=== PATIENT | female | born 1940 | race Caucasian/White ===

== ENCOUNTER 2017-02-17 23:10 | Emergency (ER) | payer MEDICARE, OTHER ==
[~2017-02-17] VITALS: Ht 160 cm; Wt 85.3 kg
[2017-02-18] MEDS ORDERED: ASPIRIN 325 MG TAB PO ONE (01:00)
[2017-02-18 01:07] LABS: BASO # 0.1 K/mm3 (0.0-0.2); BASO % 1.3 % (0.0-1.0); EOS # 0.3 K/mm3 (0.0-0.50); EOS % 4.1 % (0.0-3.0); LARGE UNSTAINED CELL # 0.1 K/mm3 (0.0-0.4); LARGE UNSTAINED CELL % 1.6 % (0.0-4.0); LYMPH % 27.4 % (24.0-44.0); MEAN CORPUSCULAR HGB CONC 32.8 g/dl (32.0-36.5); MEAN CORPUSCULAR VOLUME 97.4 fl (80.0-96.0); MONO # 0.5 K/mm3 (0.0-0.8); MONO % 6.8 % (0.0-5.0); NEUTROPHILS % 58.8 % (36.0-66.0); PLATELET COUNT, AUTOMATED 116 k/mm3 (150-450); RED CELL DISTRIBUTION WIDTH 13.3 % (11.5-14.5); WHITE BLOOD COUNT 6.7 K/mm3 (4.0-10.0)
[2017-02-18 01:37] LABS: ANION GAP 6 MEQ/L (8-16); BLOOD UREA NITROGEN 16 MG/DL (7-18); CALCIUM LEVEL 8.4 MG/DL (8.8-10.2); CARBON DIOXIDE LEVEL 30 MEQ/L (21-32); CHLORIDE LEVEL 109 MEQ/L (98-107); GLOMERULAR FILTRATION RATE > 60.0 (>39); GLUCOSE, FASTING 111 MG/DL (83-110); POTASSIUM SERUM 4.2 MEQ/L (3.5-5.1); SODIUM LEVEL 145 MEQ/L (136-145)
[2017-02-18] MEDS ORDERED: TIOT18INH INH (01:59)
[2017-02-18] MEDS ORDERED: FLON1SPR (01:59)
[2017-02-18] MEDS ORDERED: SERT50TA PO (01:59)
[2017-02-18] MEDS ORDERED: ASPI1TAB PO (01:59)
[2017-02-18 02:15] LABS: INR 0.91
[2017-02-18 05:16] VITALS: BP 148/67
--- NOTE | 2017-02-18 08:11 | REP ---
Clinical: Chest pain . Comparison: 12/10/2015 . Findings: The mediastinum and cardiac silhouette are stable and within normal limits for portable technique. The lung alfred demonstrate chronic stable interstitial changes without acute consolidation, effusion, or pneumothorax. Skeletal structures are intact. Impression: No acute cardiopulmonary process appreciated. Signed by Anthony Lopes MD 02/18/2017 08:02 A
--- NOTE | 2017-02-18 21:10 | ECGEPIP ---
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
--- NOTE | 2017-02-18 21:30 | ECGEPIP ---
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
== END 2017-02-18 05:26 | disposition home or self-care (01) ==
LOC: EDBD 23:10 → M ED 23:10
DX: R07.89 Other chest pain (principal); J44.9 Chronic obstructive pulmonary disease, unspecified; F41.9 Anxiety disorder, unspecified; Z88.5 Allergy status to narcotic agent; Z79.51 Long term (current) use of inhaled steroids; Z79.82 Long term (current) use of aspirin

== ENCOUNTER 2017-06-17 17:20 | Emergency (ER) | payer MEDICARE, OTHER ==
[2017-06-17] MEDS: ONDANSETRON 4MG/2ML VIAL (J2405) IV ×2 (18:28→20:06)
[2017-06-17] MEDS: MORPHINE 4 MG/ML 1ML SYRINGE IV (18:29)
== END 2017-06-17 20:43 | disposition home or self-care (01) ==
LOC: M ED 17:20
DX: S52.532A Colles' fracture of left radius, initial encounter for closed fracture (principal); W01.198A Fall on same level from slipping, tripping and stumbling with subsequent striking against other object, initial encounter; Y92.099 Unspecified place in other non-institutional residence as the place of occurrence of the external cause; Y93.01 Activity, walking, marching and hiking; Z87.891 Personal history of nicotine dependence
CPT/HCPCS: J2405

== ENCOUNTER → 2017-08-12 | Outpatient (REF) | payer MEDICARE, OTHER ==
[2017-08-12 21:09] LABS: APPEARANCE, URINE CLEAR (CLEAR); BACTERIA, URINE AUTO NEGATIVE (NEGATIVE); BILIRUBIN, URINE AUTO NEGATIVE (NEGATIVE); BLOOD, URINE BLOOD NEGATIVE (NEGATIVE); COLOR, URINE YELLOW (YELLOW); GLUCOSE, URINE (UA) AUTO NEGATIVE (NEGATIVE); KETONE, URINE AUTO NEGATIVE (NEGATIVE); LEUKOCYTE ESTERASE, URINE AUTO NEGATIVE (NEGATIVE); MUCUS, URINE SMALL (NEGATIVE); NITRITE, URINE AUTO NEGATIVE (NEGATIVE); PROTEIN, URINE AUTO NEGATIVE (NEGATIVE); RBC, URINE AUTO 0 /HPF (0-3); SPECIFIC GRAVITY URINE AUTO 1.012 (1.002-1.035); SQUAMOUS EPITHELIAL CELL UR AU 0 /HPF (0-6); UROBILINOGEN, URINE AUTO 0.2 mg/dL (0.0-2.0); WBC, URINE AUTO 0 /HPF (0-3)
== END ==
LOC: M SMT 17:07
DX: R32 Unspecified urinary incontinence (principal)
CPT/HCPCS: 81001

== ENCOUNTER 2017-09-12 08:33 | Emergency (ER) | payer MEDICARE, OTHER ==
[2017-09-12] MEDS: ASPIRIN 81 MG CHEW TABLET PO (09:38)
[2017-09-12] MEDS: PANTOPRAZOLE 40MG INJ (PROTONIX) (C9113) IV (09:38)
[2017-09-12 09:54] LABS: BASO % 0.5 % (0.0-1.0); EOS # 0.1 10^3/uL (0.0-0.50); EOS % 1.2 % (0.0-3.0); HEMATOCRIT 42.4 % (36.0-47.0); IMMATURE GRANULOCYTE % 0.6 % (0-3.0); LYMPH # 0.7 10^3/uL (1.5-4.5); LYMPH % 10.8 % (24.0-44.0); MEAN CORPUSCULAR HEMOGLOBIN 30.6 pg (27.0-33.0); MEAN CORPUSCULAR VOLUME 92.6 fl (80.0-96.0); MONO # 0.5 10^3/uL (0.0-0.8); MONO % 7.8 % (0.0-5.0); NEUTROPHILS # 5.3 10^3/uL (1.8-7.7); NEUTROPHILS % 79.1 % (36.0-66.0); PLATELET COUNT, AUTOMATED 118 10^3/uL (150-450); RED BLOOD COUNT 4.58 10^6/uL (4.00-5.40); WHITE BLOOD COUNT 6.7 10^3/uL (4.0-10.0)
[2017-09-12 10:08] LABS: ALBUMIN 3.3 GM/DL (3.2-5.2); ALBUMIN/GLOBULIN RATIO 0.94 (1.00-1.93); ALKALINE PHOSPHATASE 124 U/L (45-117); ALT/SGPT 17 U/L (12-78); ANION GAP 5 MEQ/L (8-16); AST/SGOT 13 U/L (7-37); BILIRUBIN,DIRECT 0.1 MG/DL (0.0-0.2); BILIRUBIN,TOTAL 0.6 MG/DL (0.2-1.0); BLOOD UREA NITROGEN 15 MG/DL (7-18); CALCIUM LEVEL 8.9 MG/DL (8.8-10.2); CARBON DIOXIDE LEVEL 29 MEQ/L (21-32); CHLORIDE LEVEL 110 MEQ/L (98-107); CPK CREATINE PHOSPHOKINASE 38 U/L (26-192); CREATININE FOR GFR 0.89 MG/DL (0.55-1.30); GLOMERULAR FILTRATION RATE > 60.0 (>39); GLUCOSE, FASTING 103 MG/DL (70-100); LIPASE 155 U/L (73-393); SODIUM LEVEL 144 MEQ/L (136-145); TOTAL PROTEIN 6.8 GM/DL (6.4-8.2); TROPONIN I < 0.02 NG/ML (< 0.10)
[2017-09-12 10:09] LABS: CK-MB VALUE MASS < 1.0 NG/ML (<3.6); MB/CK RELATIVE INDEX 2.63 (< OR =4)
[2017-09-12 13:21] LABS: CK-MB VALUE MASS < 1.0 NG/ML (<3.6); CPK CREATINE PHOSPHOKINASE 36 U/L (26-192); MB/CK RELATIVE INDEX 2.77 (< OR =4); TROPONIN I < 0.02 NG/ML (< 0.10)
== END 2017-09-12 13:55 | disposition home or self-care (01) ==
LOC: M ED 08:33
DX: R07.89 Other chest pain (principal); K44.9 Diaphragmatic hernia without obstruction or gangrene; I44.0 Atrioventricular block, first degree; J44.9 Chronic obstructive pulmonary disease, unspecified; E78.5 Hyperlipidemia, unspecified; G47.33 Obstructive sleep apnea (adult) (pediatric); Z79.899 Other long term (current) drug therapy; Z79.82 Long term (current) use of aspirin; Z79.51 Long term (current) use of inhaled steroids; Z88.5 Allergy status to narcotic agent
CPT/HCPCS: C9113

== ENCOUNTER → 2018-08-06 | Outpatient (REF) | payer MEDICARE, OTHER ==
[~2018-08-06] MED LIST: ASPI1TAB PO; ATOR1TAB19; FLON1SPR; PROAAER10; PROT1TAB2 PO; SERT50TA PO; TIOT18INH INH
== END ==
LOC: M SFHCLERA 14:56
PROVIDERS: ATTEND Physician Assistant
DX: J02.9 Acute pharyngitis, unspecified (principal)

== ENCOUNTER → 2019-08-03 | Outpatient (CLI) | payer MEDICARE, OTHER ==
[~2019-08-03] MED LIST changes: +ALBU83IN INH; -ASPI1TAB PO; +ASPI81TA26 PO; +MYRB50TA PO; +PRED20TA PO; +RANI150T14 PO; +SERT-141 PO; -SERT50TA PO
--- NOTE | 2019-08-03 09:38 | REP ---
Clinical: Urinary retention. Technique: Real time deshpande scale and color evaluation using curved array transducer. Findings: Bladder is not fully distended on prevoid images and wall thickening cannot be assessed. No mass lesion is identified. Bilateral ureteral jets are noted. Prevoid volume: 87 ml. Postvoid volume: 56 ml. Postvoid residual: 64% Impression: 1. Bladder does not fully distend and abnormally increased postvoid residual volume is noted. 2. No mass lesion identified. Electronically Signed by Anthony Lopes MD 08/03/2019 09:29 A
== END ==
LOC: M RAD 08:57
PROVIDERS: ATTEND Internal Medicine Nephrology
DX: R33.9 Retention of urine, unspecified (principal)

== ENCOUNTER 2020-05-11 20:08 | Inpatient (IN) | payer MEDICARE, OTHER ==
[~2020-05-11] VITALS: Ht 157.5 cm; Wt 84.5 kg
--- NOTE | 2020-05-11 20:50 | REPVR ---
PROCEDURE INFORMATION: Exam: XR Left Humerus Exam date and time: 05/11/2020 8:41 PM Age: 79 years old Clinical indication: Pain and injury or trauma; Fall; Sprain or strain; Humerus; Left; Upper arm; Additional info: Fall/pain TECHNIQUE: Imaging protocol: XR Left humerus Views: 2 or more views. COMPARISON: No relevant prior studies available. FINDINGS: Bones/joints: There is a fracture of the proximal humerus consisting of a transverse fracture through the humeral neck with angulation. There is a probable longitudinal fracture through the greater tubercle which is slightly displaced. Osteopenia. Soft tissues: Normal. IMPRESSION: 1. Fracture of the proximal left humerus which consists of a transverse fracture of the humeral neck with angulation and a longitudinal fracture through the greater tubercle. 2. Osteopenia. Electronically signed by: Adama Jefferson On 05/11/2020 20:50:15 PM
--- NOTE | 2020-05-11 20:52 | REPVR ---
PROCEDURE INFORMATION: Exam: XR Left Shoulder Exam date and time: 05/11/2020 8:41 PM Age: 79 years old Clinical indication: Pain and injury or trauma; Fall; Sprain or strain; Shoulder; Left; Additional info: Fall/pain TECHNIQUE: Imaging protocol: XR Left shoulder. Views: 2 or more views. COMPARISON: No relevant prior studies available. FINDINGS: Bones/joints: Osteopenia. Fracture of the proximal humerus with a transverse fracture of the humeral neck and a slightly displaced longitudinal fracture of the greater tubercle. There is angulation through the site of fracture with mild displacement. There is subluxation of the articular surface of the humeral head. Soft tissues: Normal. IMPRESSION: 1. Osteopenia. 2. Displaced and angulated fracture of the humeral neck with associated subluxation of the articular portion of the humeral head relative to the glenoid. There is also a fracture through the base of the greater tubercle. Electronically signed by: Adama Jefferson On 05/11/2020 20:52:35 PM
--- NOTE | 2020-05-11 21:35 | REPVR ---
PROCEDURE INFORMATION: Exam: CT Cervical Spine Without Contrast Exam date and time: 05/11/2020 9:23 PM Age: 79 years old Clinical indication: Injury or trauma; Fall; Blunt trauma TECHNIQUE: Imaging protocol: Computed tomography images of the cervical spine without contrast. Radiation optimization: All CT scans at this facility use at least one of these dose optimization techniques: automated exposure control; mA and/or kV adjustment per patient size (includes targeted exams where dose is matched to clinical indication); or iterative reconstruction. COMPARISON: CT Neck with contrast 04/18/2014 1:27 PM FINDINGS: Vertebrae: Slight anterior wedge configuration of C4 which appears to be chronic and is similar to a prior study. C2-C3: Fusion of the left apophyseal joint with some degenerative change on the right with no significant spinal or foraminal stenosis. C3-C4: Slight interspace narrowing posteriorly with moderate degenerative change of the apophyseal joints, left greater than right with no significant spinal or foraminal stenosis. C4-C5: Slight anterolisthesis with moderate degenerative changes of the right apophyseal joint and minimal change on the left with no significant spinal or foraminal stenosis. C5-C6: Slight anterolisthesis with moderate degenerative/arthritic change of the right apophyseal joint and minimal changes on the left with no significant spinal or foraminal stenosis. C6-C7: Minimal degenerative change with no spinal or foraminal stenosis. C7-T1: Minimal degenerative change of apophyseal joints, right greater than left with slight anterolisthesis and no significant spinal or foraminal stenosis. Soft tissues: Unremarkable. Lungs: Biapical interstitial coarsening and bullous change. IMPRESSION: 1. Mild multilevel degenerative changes with no significant spinal or foraminal stenosis. There has been little change from 04/18/2014. 2. Otherwise negative CT cervical spine. No acute fracture or subluxation. Electronically signed by: Adama Jefferson On 05/11/2020 21:35:30 PM
--- NOTE | 2020-05-11 21:37 | REPVR ---
PROCEDURE INFORMATION: Exam: CT Head Without Contrast Exam date and time: 05/11/2020 9:23 PM Age: 79 years old Clinical indication: Injury or trauma; Fall; Blunt trauma (contusions or hematomas) TECHNIQUE: Imaging protocol: Computed tomography of the head without contrast. Radiation optimization: All CT scans at this facility use at least one of these dose optimization techniques: automated exposure control; mA and/or kV adjustment per patient size (includes targeted exams where dose is matched to clinical indication); or iterative reconstruction. COMPARISON: CT Head without contrast 07/22/2014 8:09 AM FINDINGS: Brain: Upper normal sulci for age. The deshpande and white matter is within normal limits. Cerebral ventricles: No ventriculomegaly. Bones/joints: Unremarkable. No acute fracture. Paranasal sinuses: Visualized sinuses are unremarkable. No fluid levels. Mastoid air cells: Visualized mastoid air cells are well aerated. Soft tissues: Unremarkable. IMPRESSION: Negative noncontrast head CT without significant change from 07/22/2014. Electronically signed by: Adama Jefferson On 05/11/2020 21:37:50 PM
[2020-05-11] MEDS ORDERED: NORCO, ANEXSIA 5/325MG TABLET (HYDROcodone/ACETAMINOPHEN) PO ONE (21:45)
[2020-05-11] MEDS ORDERED: NORC1TAB7 PO (22:04)
[2020-05-11] MEDS ORDERED: ONDA4TAB6 PO (22:04)
--- NOTE | 2020-05-11 22:18 | REPVR ---
PROCEDURE INFORMATION: Exam: CT Left Upper Extremity Without Contrast, Shoulder Exam date and time: 05/11/2020 9:23 PM Age: 79 years old Clinical indication: Injury or trauma; Fall; Blunt trauma (contusions or hematomas); Shoulder; Left TECHNIQUE: Imaging protocol: CT of the Left upper extremity without contrast was performed. Exam focused on the shoulder. Radiation optimization: All CT scans at this facility use at least one of these dose optimization techniques: automated exposure control; mA and/or kV adjustment per patient size (includes targeted exams where dose is matched to clinical indication); or iterative reconstruction. COMPARISON: CR Shoulder, complete LEFT 05/11/2020 8:27 PM FINDINGS: Bones/joints: The comminuted fracture of the proximal left humerus with a transverse fracture through the humeral neck. There is impaction of the metaphysis into the humeral head fragment which is displaced and angulated. The metaphysis is anterior to the humeral head. Multiple fracture lines are noted to extend through the humeral head fragment which include a fracture extending longitudinally along the greater trochanter with additional fracture lines which extend into the articular surface with slight displacement of the intervening fragment at the posterior aspect. There is a large left hemarthrosis of the left shoulder joint with pseudosubluxation of the humeral head relative to the glenoid. Soft tissues: Normal. IMPRESSION: 1. Comminuted fracture of the left proximal humerus which consists of a transverse fracture through the humeral neck which is displaced anteriorly relative to the head component. The head fragment demonstrates several fracture lines which include a longitudinal transverse fracture through the base of the greater trochanter and additional fracture extending posteriorly through the articular surface of the humeral head. 2. Large lipohemarthrosis of the left shoulder with anterior pseudosubluxation of the humeral head. Electronically signed by: Adama Jefferson On 05/11/2020 22:18:16 PM
[2020-05-11 22:58] LABS: BASO % 0.4 % (0.0-1.0); EOS % 0.5 % (0.0-3.0); HEMATOCRIT 40.6 % (36.0-47.0); HEMOGLOBIN 12.9 g/dl (12.0-15.5); LYMPH # 0.9 10^3/uL (1.5-5.0); LYMPH % 10.3 % (24.0-44.0); MEAN CORPUSCULAR HEMOGLOBIN 30.5 pg (27.0-33.0); MEAN CORPUSCULAR HGB CONC 31.8 g/dl (32.0-36.5); MONO # 0.4 10^3/uL (0.0-0.8); NEUTROPHILS # 6.9 10^3/uL (1.5-8.5); NEUTROPHILS % 83.4 % (36.0-66.0); RED BLOOD COUNT 4.23 10^6/uL (4.00-5.40); WHITE BLOOD COUNT 8.3 10^3/uL (4.0-10.0)
--- NOTE | 2020-05-11 23:01 | REPVR ---
PROCEDURE INFORMATION: Exam: XR Chest, 1 View Exam date and time: 05/11/2020 10:42 PM Age: 79 years old Clinical indication: Cough and dyspnea; Additional info: Dyspnea/cough TECHNIQUE: Imaging protocol: XR of the chest Views: 1 view. COMPARISON: CR PORTABLE CHEST X-RAY 10/29/2018 9:43 AM FINDINGS: Lungs: Mild pulmonary hyperinflation with some relative lucency of lung which is similar. There are no interval infiltrates. Pleural space: Unremarkable. No pleural effusion. No pneumothorax. Heart/Mediastinum: The heart and mediastinum is probably unchanged with borderline cardiomegaly. Bones/joints: Fractured left humeral head, new since the prior study. Other findings: Rotation to the right. IMPRESSION: 1. Fracture of the left humeral head which is new since 10/29/2018. 2. Otherwise essentially stable senescent chest with suggestion of some degree of COPD. Electronically signed by: Adama Jefferson On 05/11/2020 23:01:47 PM
--- NOTE | 2020-05-11 23:53 | HPEPDOC ---
[facility] Medical History & Physical Date of Admission May 11, 2020 Date of Service: May 11, 2020 Primary Care Physician: RADHA TORRES MD Attending Physician: FIDELINA PEÑA MD History and Physical TIME OF SERVICE: 1154pm CHIEF COMPLAINT: Left shoulder pain HISTORY OF PRESENT ILLNESS: This 79-year-old female as an unsteady gait and at her baseline should be using a cane or walker. She slipped on her floor and fell on her left shoulder while she was trying getting up off of her couch. She didn't have her cane or walker to assist her when she fell. She denied feeling dizzy, having shortness of breath, having chest pain, having vomiting or diarrhea prior to the fall. She re ports eating well yesterday. As a result of the fall, she developed left upper extremity 5 out of 10 in severity, arm pain that is worse with movement. She was found to have a closed left humerus fracture; Dr. Torres discussed the case with Dr. Bauer who recommended sling PT and outpatient follow-up. added with a sling the patient won't be able to use her walking aides and will need additional arrangements to ensure that she is safely discharged home. REVIEW OF SYSTEMS: 12 point review of systems negative except as listed in HPI PAST MEDICAL/ SURGICAL HISTORY: Asthma/COPD Dyslipidemia Impaired hearing, has hearing aids Parotid gland tumor Newly diagnosed osteoporosis Right wrist fracture in 2015 & left arm fracture in 2018 SOCIAL HISTORY: Former smoker. She smoked 1 pack per day in between the ages of 13 years into her 60s She is FAMILY HISTORY: n/a ALLERGIES: Please see below. HOME MEDICATIONS: Please see below. PHYSICAL EXAMINATION: Vital Signs Date Time Temp Pulse Resp B/P (MAP) Pulse Ox O2 Delivery O2 Flow Rate FiO2 05/11/20 20:17 96.6 63 20 128/58 (81) 98 Room Air GEN: well-nourished / well developed/grimacing in pain INTEGUMENT: not flushed/ not jaundice CVS: RRR/NMRG/ radial pulses intact LUNGS: able to speak full sentences without stopping to take a breath / no coughing / lungs are clear to auscultation bilaterally on room air MSK/EXTREMITIES: NCAT / range of motion intact in all extremities except LUE where arm is fixed with sling NEURO: CN 2-12 are grossly intact / speech is not dysarthric PSYCH: alert and oriented to person place and time/ able to understand and follow all commands LABORATORY DATA: 05/11/20 22:39 05/11/20 22:39: Immature Granulocyte % (Auto) 0.4, Neutrophils (%) (Auto) 83.4H, Lymphocytes (%) (Auto) 10.3L, Monocytes (%) (Auto) 5.0, Eosinophils (%) (Auto) 0.5, Basophils (%) (Auto) 0.4, Neutrophils # (Auto) 6.9, Lymphocytes # (Auto) 0.9L, Monocytes # (Auto) 0.4, Eosinophils # (Auto) 0.0, Basophils # (Auto) 0.0, Nucleated Red Blood Cells % (auto) 0.0, Coronavirus (COVID-19)(PCR) NEGATIVE IMAGING: Shoulder x-ray " 1. Osteopenia. 2. Displaced and angulated fracture of the humeral neck with associated subluxation of the articular portion of the humeral head relative to the glenoid. There is also a fracture through the base of the greater tubercle." Humerus x-ray"1. Fracture of the proximal left humerus which consists of a transverse fracture of the humeral neck with angulation and a longitudinal fracture through the greater tubercle. 2. Osteopenia." Shoulder CT " 1. Comminuted fracture of the left proximal humerus which consists of a transverse fracture through the humeral neck which is displaced anteriorly relative to the head component. The head fragment demonstrates several fracture lines which include a longitudinal transverse fracture through the base of the greater trochanter and additional fracture extending posteriorly through the articular surface of the humeral head. 2. Large lipohemarthrosis of the left shoulder with anterior pseudosubluxation of the humeral head." Head CT " Negative noncontrast head CT without significant change from 07/22/2014." Cervical spine CT "1. Mild multilevel degenerative changes with no significant spinal or foraminal stenosis. There has been little change from 04/18/[address] cervical spine. No acute fracture or subluxation." Chest x-ray "1. Fracture of the left humeral head which is new since 10/29/2018. 2. Otherwise essentially stable senescent chest with suggestion of some degree of COPD." ASSESSMENT: Ms. Bermudez is an 79-year-old with a history of asthma/COPD, dyslipidemia, osteoporosis, and impaired hearing, who developed a closed left humerus fracture after having a mechanical fall. She'll be admitted for pain management and discharge planning. PLAN: 1 Mechanical Fall resulting in L humerus fx Fall was most likely due to lower extremity weakness. Her EKG showed NSR w/o ST changes Plan: Admit to medical floor / PT/OT consults to determine if she is a candidate for ARU because it will be difficult for her to use her walking aides while her arm is in a sling / [place] for pain control / f/u with on an out patient basis 2. Newly Osteoporosis She has a hx of with history of right wrist fracture in 2015, left arm fracture in 2018 + osteopenia on imaging Plan: start calcium with vitamin D [id number] IU daily with PCP for workup to rule out secondary causes of osteoporosis. DEXA scan, and to start antiresorptive therapy 3. Slightly elevated TSH The patient is over 80 yrs of age: the upper limit of the normal range in this elderly population without thyroid dysfunction is 8.0 Plan: n/a 4. Asthma/COPD Plan: albuterol and Spiriva 5. Class 1 obesity BMI of 34.1 complicates care Plan: f/u A1C / f/u with PCP for sleep apnea screening and to discuss diet and exercise DVT PROPHYLAXIS: lovenox DISPOSITION: likely ARU after more than 2 midnight's stay Home Medications Scheduled Aspirin (Aspirin EC) 81 Mg Tablet.dr, 81 MG PO DAILY Furosemide (Furosemide) 40 Mg Tablet, 40 MG PO DAILY Tiotropium [place] (Spiriva Respimat) 4 Gm Mist.inhal, 2 PUFF INH DAILY Scheduled PRN Albuterol Sulfate (Proair Hfa) 8.5 Gm Hfa.aer.ad, 2 PUFF INH Q4H PRN for SHORTNESS OF BREATH Fluticasone Propionate (Flonase Allergy Relief) 9.9 Ml [place].susp, 2 SPRAYS NA DAILY PRN for NASAL CONGESTION Allergies Coded Allergies: oxycodone (Verified Adverse Reaction, Intermediate, n/v, 10/29/18) codeine (Verified Adverse Reaction, Unknown, n/v, 10/29/18) A-FIB/CHADSVASC A-FIB History Current/History of A-Fib/PAF?: No Current PO Anticoag Therapy: No FIDELINA PEÑA MD May 11, 2020 23:53
[2020-05-12] MEDS ORDERED: HYDROMORPHONE HCL 0.5 MG/ 0.5 ML SYRINGE (J1170 PER 1) IV PRN
[2020-05-12] MEDS ORDERED: SPIR12.9 INH (00:04)
[2020-05-12] MEDS ORDERED: ASPI-161 PO (00:04)
[2020-05-12] MEDS ORDERED: PROAAER10 INH (00:04)
[2020-05-12] MEDS ORDERED: FURO40TA2 PO (00:04)
[2020-05-12] MEDS ORDERED: FLON1SPR (00:04)
[2020-05-12 00:10] LABS: ALBUMIN 3.1 GM/DL (3.2-5.2); ALT/SGPT 15 U/L (12-78); BILIRUBIN,DIRECT < 0.1 MG/DL (0.0-0.2); BILIRUBIN,TOTAL 0.1 MG/DL (0.2-1.0); BLOOD UREA NITROGEN 24 MG/DL (7-18); CALCIUM LEVEL 8.5 MG/DL (8.8-10.2); CARBON DIOXIDE LEVEL 30 MEQ/L (21-32); CHLORIDE LEVEL 111 MEQ/L (98-107); CREATININE FOR GFR 1.08 MG/DL (0.55-1.30); GLOMERULAR FILTRATION RATE 51.8 (>32); GLUCOSE, FASTING 115 MG/DL (70-100); NT-PRO BNP 290 PG/ML (<450); POTASSIUM SERUM 4.3 MEQ/L (3.5-5.1); SODIUM LEVEL 145 MEQ/L (136-145); TROPONIN I < 0.02 NG/ML (< 0.10)
[2020-05-12] MEDS ORDERED: MAALOX 30 ML SUSP *UDC PO PRN (01:00)
[2020-05-12] MEDS ORDERED: MOM 30ML SUSPENSION UDC PO PRN (01:00)
[2020-05-12] MEDS ORDERED: ACETAMINOPHEN TAB 650MG DOSE (2X325MG) PO PRN (01:00)
[2020-05-12] MEDS: NORCO, ANEXSIA 5/325MG TABLET (HYDROcodone/ACETAMINOPHEN) PO PRN ×2 (01:49→08:04)
[2020-05-12 02:15] VITALS: BP 142/70
[2020-05-12 06:00] VITALS: BP 108/52
--- NOTE | 2020-05-12 06:42 | ECGEPIP ---
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
[2020-05-12 07:10] LABS: HEMATOCRIT 36.1 % (36.0-47.0); HEMOGLOBIN 11.5 g/dl (12.0-15.5); MEAN CORPUSCULAR HEMOGLOBIN 30.6 pg (27.0-33.0); MEAN CORPUSCULAR HGB CONC 31.9 g/dl (32.0-36.5); PLATELET COUNT, AUTOMATED 122 10^3/uL (150-450); RED BLOOD COUNT 3.76 10^6/uL (4.00-5.40); WHITE BLOOD COUNT 9.2 10^3/uL (4.0-10.0)
[2020-05-12 07:21] LABS: BLOOD UREA NITROGEN 22 MG/DL (7-18); CALCIUM LEVEL 8.6 MG/DL (8.8-10.2); CARBON DIOXIDE LEVEL 26 MEQ/L (21-32); CHLORIDE LEVEL 111 MEQ/L (98-107); CREATININE FOR GFR 0.95 MG/DL (0.55-1.30); GLOMERULAR FILTRATION RATE > 60.0 (>32); GLUCOSE, FASTING 108 MG/DL (70-100); POTASSIUM SERUM 4.1 MEQ/L (3.5-5.1); SODIUM LEVEL 142 MEQ/L (136-145)
[2020-05-12] MEDS ORDERED: ENOXAPARIN 40MG/0.4ML SYRINGE (J1650 PER 10MG) SC SCH (09:00)
[2020-05-12] MEDS ORDERED: HYDR-3715 PO (10:48)
[2020-05-12] MEDS ORDERED: ACET1TAB55 PO (10:48)
[2020-05-12] MEDS ORDERED: ALEN35TA54 PO (10:48)
[2020-05-12] MEDS ORDERED: CALCD50TA PO (10:51)
--- NOTE | 2020-05-12 13:51 | DS.PDOC ---
Discharge Summary General Date of Admission May 11, 2020 at 23:50 Date of Discharge 05/12/20 Discharge Summary PROCEDURES PERFORMED DURING STAY: [None]. ADMITTING DIAGNOSES: Mechanical Fall resulting in L humerus fx Newly Osteoporosis elevated TSH Asthma/COPD Class 1 obesity DISCHARGE DIAGNOSES: Mechanical Fall resulting in L humerus fx Newly Osteoporosis elevated TSH Asthma/COPD Class 1 obesity COMPLICATIONS/CHIEF COMPLAINT: Closed Left Hip Fracture,Fall. HISTORY OF PRESENT ILLNESS: This 79-year-old female as an unsteady gait and at her baseline should be using a cane or walker. She slipped on her floor and fell on her left shoulder while she was trying getting up off of her couch. She didn't have her cane or walker to assist her when she fell. She denied feeling dizzy, having shortness of breath, having chest pain, having vomiting or diarrhea prior to the fall. She reports eating well yesterday. As a result of the fall, she developed left upper extremity 5 out of 10 in severity, arm pain that is worse with movement. She was found to have a closed left humerus fracture; Dr. Torres discussed the case with Dr. Bauer who recommended sling PT and outpatient follow-up. added with a sling the patient won't be able to use her walking aides and will need additional arrangements to ensure that she is safely discharged home. HOSPITAL COURSE: Patient was cleared by PT OT in the morning. DISCHARGE MEDICATIONS: Please see below. ALLERGIES: Please see below. PHYSICAL EXAMINATION ON DISCHARGE: VITAL SIGNS: Please see below. GEN: well-nourished / well developed/grimacing in pain INTEGUMENT: not flushed/ not jaundice CVS: RRR/NMRG/ radial pulses intact LUNGS: able to speak full sentences without stopping to take a breath / no coughing / lungs are clear to auscultation bilaterally on room air MSK/EXTREMITIES: NCAT / range of motion intact in all extremities except LUE where arm is fixed with sling NEURO: CN 2-12 are grossly intact / speech is not dysarthric PSYCH: alert and oriented to person place and time/ able to understand and follow all commands LABORATORY DATA: Please see below. IMAGING: Shoulder x-ray " 1. Osteopenia. 2. Displaced and angulated fracture of the humeral neck with associated subluxation of the articular portion of the humeral head relative to the glenoid. There is also a fracture through the base of the greater tubercle." Humerus x-ray"1. Fracture of the proximal left humerus which consists of a transverse fracture of the humeral neck with angulation and a longitudinal fracture through the greater tubercle. 2. Osteopenia." Shoulder CT " 1. Comminuted fracture of the left proximal humerus which consists of a transverse fracture through the humeral neck which is displaced anteriorly relative to the head component. The head fragment demonstrates several fracture lines which include a longitudinal transverse fracture through the base of the greater trochanter and additional fracture extending posteriorly through the articular surface of the humeral head. 2. Large lipohemarthrosis of the left shoulder with anterior pseudosubluxation of the humeral head." Head CT " Negative noncontrast head CT without significant change from 07/22/2014." Cervical spine CT "1. Mild multilevel degenerative changes with no significant spinal or foraminal stenosis. There has been little change from 04/18/[address] cervical spine. No acute fracture or subluxation." Chest x-ray "1. Fracture of the left humeral head which is new since 10/29/2018. 2. Otherwise essentially stable senescent chest with suggestion of some degree of COPD." PROGNOSIS: Fair ACTIVITY: [As tolerated]. DIET: Regular DISPOSITION: 01 Home, Self-Care. ITEMS TO FOLLOWUP ON ON OUTPATIENT: Follow-up with PCP DISCHARGE CONDITION: [Stable]. TIME SPENT ON DISCHARGE: Greater than 20 minutes. Vital Signs/I&Os Vital Signs Date Time Temp Pulse Resp B/P (MAP) Pulse Ox O2 Delivery O2 Flow Rate FiO2 05/12/20 08:34 18 05/12/20 06:00 97.5 56 108/52 (70) 95 Room Air I&O- Last 24 Hours up to 6 AM 05/12/20 06:00 Intake Total 0 ml Output Total 0 ml Balance 0 ml Laboratory Data Labs 24H Laboratory Tests 2 05/11/20 22:39: Immature Granulocyte % (Auto) 0.4, Neutrophils (%) (Auto) 83.4H, Lymphocytes (%) (Auto) 10.3L, Monocytes (%) (Auto) 5.0, Eosinophils (%) (Auto) 0.5, Basophils (%) (Auto) 0.4, Neutrophils # (Auto) 6.9, Lymphocytes # (Auto) 0.9L, Monocytes # (Auto) 0.4, Eosinophils # (Auto) 0.0, Basophils # (Auto) 0.0, Nucleated Red Blood Cells % (auto) 0.0, Anion Gap 4L, Glomerular Filtration Rate 51.8, Calcium Level 8.5L, Total Bilirubin 0.1L, Direct Bilirubin < 0.1, Aspartate Amino Transf (AST/SGOT) 18, Alanine Aminotransferase (ALT/SGPT) 15, Alkaline Phosphatase 120H, Troponin I < 0.02, CJ-Sbv-C-Type Natriuretic Peptide 290, Total Protein 6.0L, Albumin 3.1L, Albumin/Globulin Ratio 1.1L, Thyroid Stimulating Hormone (TSH) 7.040H, Coronavirus (COVID-19)(PCR) NEGATIVE 05/12/20 06:22: Nucleated Red Blood Cells % (auto) 0.0, Anion Gap 5L, Glomerular Filtration Rate > 60.0, Calcium Level 8.6L CBC/BMP Laboratory Tests 05/11/20 22:39 05/12/20 06:22 Discharge Medications Scheduled Alendronate Sodium (Alendronate Sodium) 35 Mg Tablet, 1 TAB PO Q7D Aspirin (Aspirin EC) 81 Mg Tablet.dr, 81 MG PO DAILY, (Reported) Calcium/Vitamin D (Calcium 500-Vit D3 200 Tablet) 1 Each Tablet, 1,000 MG PO BID Furosemide (Furosemide) 40 Mg Tablet, 40 MG PO DAILY, (Reported) Tiotropium [place] (Spiriva Respimat) 4 Gm Mist.inhal, 2 PUFF INH DAILY, (Reported) Scheduled PRN Acetaminophen (Acetaminophen) 325 Mg Tablet, 650 MG PO Q4H PRN for PAIN OR FEVER Albuterol Sulfate (Proair Hfa) 8.5 Gm Hfa.aer.ad, 2 PUFF INH Q4H PRN for SHORTNESS OF BREATH, (Reported) Fluticasone Propionate (Flonase Allergy Relief) 9.9 Ml [place].susp, 2 SPRAYS NA DAILY PRN for NASAL CONGESTION, (Reported) Hydrocodone/Acetaminophen (Hydrocodone-Acetamin 5-325 mg) 1 Each Tablet, 1 TAB PO Q4HP PRN for MILD/MODERATE PAIN (PS 1-7) Allergies Coded Allergies: oxycodone (Verified Adverse Reaction, Intermediate, n/v, 10/29/18) codeine (Verified Adverse Reaction, Unknown, n/v, 10/29/18) MC GAMEZ DO May 12, 2020 13:51
[2020-05-12] MEDS ORDERED: CALCIUM/VITAMIN D 500 MG TAB PO SCH (21:00)
== END 2020-05-12 11:18 | disposition home or self-care (01) | DRG 563 ==
LOC: M ED 20:08 → M ED INP 23:50 → ENRESERV 05-12 00:45 → M MS5PR 05-12 01:40
PROVIDERS: ADMIT Internal Medicine; ATTEND Internal Medicine
DX: S42.252A Displaced fracture of greater tuberosity of left humerus, initial encounter for closed fracture (principal); R26.89 Other abnormalities of gait and mobility; W18.09XA Striking against other object with subsequent fall, initial encounter; Y92.009 Unspecified place in unspecified non-institutional (private) residence as the place of occurrence of the external cause; Y99.8 Other external cause status; Y93.89 Activity, other specified; J45.909 Unspecified asthma, uncomplicated; J44.9 Chronic obstructive pulmonary disease, unspecified; M81.0 Age-related osteoporosis without current pathological fracture; H91.93 Unspecified hearing loss, bilateral; Z87.891 Personal history of nicotine dependence; E66.9 Obesity, unspecified; Z68.34 Body mass index [BMI] 34.0-34.9, adult; Z79.82 Long term (current) use of aspirin; Z79.899 Other long term (current) drug therapy; Z88.5 Allergy status to narcotic agent; Z20.828 Contact with and (suspected) exposure to other viral communicable diseases

== ENCOUNTER → 2020-06-23 | Outpatient (CLI) | payer MEDICARE, OTHER ==
[~2020-06-23] MED LIST changes: +ACET1TAB55 PO; +ALEN35TA54 PO; +ASPI-161 PO; +CALCD50TA PO; +FURO40TA2 PO; +HYDR-3715 PO; +NORC1TAB7 PO; +ONDA4TAB6 PO; +PROAAER10 INH; +SPIR12.9 INH
--- NOTE | 2020-06-23 11:51 | REP ---
INDICATION: PAIN. COMPARISON: None. TECHNIQUE: Internal rotation, external rotation, Y-view and axillary views of the left shoulder FINDINGS: There is a comminuted fracture of the humeral head with associated anteroinferior glenohumeral joint dislocation. Underlying age-related osteopenia and degenerative changes noted. IMPRESSION: Comminuted fracture of the humeral head with associated glenohumeral joint dislocation. <Electronically signed by Anthony Lopse > 06/23/20 [id number]
== END ==
LOC: M SOG 06-22 11:44
PROVIDERS: ATTEND Orthopaedic Surgery Sports Medicine
DX: S42.294A Other nondisplaced fracture of upper end of right humerus, initial encounter for closed fracture (principal); X58.XXXA Exposure to other specified factors, initial encounter; Y92.9 Unspecified place or not applicable

== ENCOUNTER → 2020-08-04 | Outpatient (CLI) | payer MEDICARE, OTHER ==
--- NOTE | 2020-08-04 18:15 | REP ---
INDICATION: PAIN. COMPARISON: Comparison left shoulder radiographs are from 23 June 2020. 11 May 2020 prior radiographs are also reviewed.. TECHNIQUE: Four views of the left shoulder are obtained. FINDINGS: There is marked diffuse osteopenia again noted. An impacted but healed surgical neck fracture of the left proximal humerus is seen. There is widening of the subacromial space suggesting a joint effusion or joint capsule laxity. This finding is unchanged from June 23, 2020. There is apex and anterior angulation at the impacted fracture also unchanged. I believe the articular portion of the humeral head is aligned with the glenoid. The AC joint is normally aligned. No acute fracture is seen. Mild cardiomegaly is observed. Dextroconvex thoracic curvature is seen. IMPRESSION: Marked osteoporosis. Old healed impacted surgical neck fracture of the left proximal humerus with apex anterior angulation unchanged. On the frontal view, the humeral head is positioned somewhat inferior relative to the glenoid question joint effusion and or ligamentous laxity. This is unchanged. <Electronically signed by Devon Smith > 08/04/20 [id number]
== END ==
LOC: M SOG 10:58
PROVIDERS: ATTEND Orthopaedic Surgery Sports Medicine
DX: S42.232D 3-part fracture of surgical neck of left humerus, subsequent encounter for fracture with routine healing (principal); X58.XXXD Exposure to other specified factors, subsequent encounter; M81.0 Age-related osteoporosis without current pathological fracture

== ENCOUNTER → 2020-09-21 | Outpatient (CLI) | payer MEDICARE, OTHER ==
--- NOTE | 2020-09-21 16:24 | REP ---
INDICATION: F/;U FX. COMPARISON: 05/11/2020 and 08/04/2020. TECHNIQUE: There are four views including an axillary view. FINDINGS: There is an impacted fracture humeral surgical neck similar to the comparison studies. There is diffuse demineralization. On the AP view the humeral head is positioned inferiorly in the glenoid fossa, however, does not appear dislocated on the axillary view. This may indicate ligamentous injury or joint effusion. IMPRESSION: There is no interval change. <Electronically signed by Troy Jose > 09/21/20 [id number]
== END ==
LOC: M SOG 15:38
PROVIDERS: ATTEND Orthopaedic Surgery Sports Medicine
DX: S42.232D 3-part fracture of surgical neck of left humerus, subsequent encounter for fracture with routine healing (principal)

== ENCOUNTER → 2020-10-04 | Outpatient (CLI) | payer MEDICARE, OTHER ==
--- NOTE | 2020-10-04 14:05 | REP ---
INDICATION: STRAIN OF MUSC OF ROTATOR CUFF LT SHOULDER. COMPARISON: Comparison radiographs of the left shoulder are from September 21, 2020.. TECHNIQUE: Axial, oblique coronal, and oblique sagittal imaging planes utilized. T1 and T2 weighted scans are included with and without fat saturation in the usual fashion. FINDINGS: There is heterogeneous pattern of increased signal intensity representing marrow edema at and adjacent to the impacted fracture of the surgical neck of the left humerus. There is a moderate glenohumeral joint effusion associated with this. Cortical and medullary bone signal intensity are normal in the glenoid, acromion process, and coracoid process as well as the visualized body of the scapula. Distal clavicle is unremarkable and AC joint is normally aligned. There is minimal joint fluid and hypertrophy at the AC joint. There is some swelling and increased signal intensity in the distal supraspinatus tendon consistent with tendinosis but no disruption is seen. The infraspinatus and subscapularis tendons appear to be intact. Biceps tendon is normal in course and appears intact. Degenerative changes are felt to be present in the anterior and posterior labral cartilage is period the superior labrum is not well seen. IMPRESSION: Subacute surgical neck fracture with impaction and adjacent marrow edema. Incomplete healing. Moderate glenohumeral joint effusion. Tendinosis in the supraspinatus tendon. No full-thickness cuff tear seen. Degenerative fraying of the glenoid articular cartilage. <Electronically signed by Devon Smith > 10/04/20 [id number]
== END ==
LOC: M PLARAD 12:08
PROVIDERS: ATTEND Orthopaedic Surgery Sports Medicine
DX: S46.012D Strain of muscle(s) and tendon(s) of the rotator cuff of left shoulder, subsequent encounter (principal)

== ENCOUNTER → 2021-03-06 | Outpatient (CLI) | payer MEDICARE, OTHER ==
[~2021-03-06] MED LIST changes: -ALEN35TA54 PO; +ALEN35TA56 PO
--- NOTE | 2021-03-06 09:10 | REP ---
INDICATION: SHOULDER FX. COMPARISON: 09/21/2020. TECHNIQUE: Six views left shoulder. FINDINGS: There is osteopenia. There is an old healed fracture of the proximal humerus. The humeral head is subluxed slightly inferiorly and anteriorly with respect to the glenoid. There is moderate narrowing of the acromioclavicular joint with mild hypertrophic change. Acromion is downward sloping. IMPRESSION: Old healed fracture proximal humerus. Osteopenia. Mild anterior and inferior subluxation of the humeral head. <Electronically signed by Troy Haji > 03/06/21 [id number]
== END ==
LOC: M SOG 08:12
PROVIDERS: ATTEND Orthopaedic Surgery Sports Medicine
DX: S42.232D 3-part fracture of surgical neck of left humerus, subsequent encounter for fracture with routine healing (principal); X58.XXXD Exposure to other specified factors, subsequent encounter; Y92.89 Other specified places as the place of occurrence of the external cause; M85.9 Disorder of bone density and structure, unspecified

== ENCOUNTER 2024-01-22 21:56 | Emergency (ER) | payer MEDICARE, OTHER ==
[~2024-01-22] VITALS: Ht 157.5 cm; Wt 66.0 kg
[~2024-01-22 21:56] MED LIST changes: +ALBU2.5V10 INH; -ALBU83IN INH; -ASPI-161 PO; +ASPI-615 PO; +ONDA-282 PO; -ONDA4TAB6 PO
[2024-01-22 22:40] LABS: BASO % 0.3 % (0.0-1.0); EOS # 0.1 10^3/uL (0.0-0.5); EOS % 2.2 % (0.0-3.0); HEMATOCRIT 41.2 % (36.0-47.0); HEMOGLOBIN 13.4 g/dl (12.0-15.5); LYMPH # 1.4 10^3/uL (1.5-5.0); LYMPH % 23.5 % (24.0-44.0); MEAN CORPUSCULAR HEMOGLOBIN 31.8 pg (27.0-33.0); MEAN CORPUSCULAR HGB CONC 32.5 g/dl (32.0-36.5); MEAN CORPUSCULAR VOLUME 97.9 fl (80.0-96.0); MONO # 0.5 10^3/uL (0.0-0.8); MONO % 8.2 % (2.0-8.0); NEUTROPHILS # 3.9 10^3/uL (1.5-8.5); NEUTROPHILS % 65.6 % (36.0-66.0); RED BLOOD COUNT 4.21 10^6/uL (4.00-5.40)
[2024-01-22 23:04] LABS: CPK CREATINE PHOSPHOKINASE 78 U/L (34-145)
[2024-01-22 23:05] LABS: BLOOD UREA NITROGEN 26 MG/DL (9-23); CALCIUM LEVEL 8.5 MG/DL (8.3-10.6); CARBON DIOXIDE LEVEL 34 MMOL/L (20-31); CHLORIDE LEVEL 110 MMOL/L (98-107); CREATININE FOR GFR 0.83 MG/DL (0.55-1.30); GLOMERULAR FILTRATION RATE > 60.0 (>32); GLUCOSE, FASTING 88 MG/DL (74-106); MB/CK RELATIVE INDEX 1.28 (< OR =4); POTASSIUM SERUM 3.8 MMOL/L (3.5-5.1); SODIUM LEVEL 144 MMOL/L (136-145)
[2024-01-22] MEDS: fentaNYL 100 MCG/2 ML INJECTION IV ONE (23:23)
[2024-01-22 23:56] LABS: PLATELET COUNT, AUTOMATED 91 10^3/uL (150-450)
[2024-01-23 00:26] VITALS: TEMP 97.4
[2024-01-23 01:03] LABS: CK-MB VALUE MASS < 1.0 NG/ML (<3.6)
[2024-01-23 01:17] LABS: CPK CREATINE PHOSPHOKINASE 71 U/L (34-145)
[2024-01-23 01:46] VITALS: BP 168/73; O2SAT 94
== END 2024-01-23 02:20 | disposition home or self-care (01) ==
LOC: M ED 21:56 → EDBD 21:56 → M ED 01-23 02:20
DX: M25.512 Pain in left shoulder (principal); I44.0 Atrioventricular block, first degree; J45.909 Unspecified asthma, uncomplicated; J44.9 Chronic obstructive pulmonary disease, unspecified; Z87.891 Personal history of nicotine dependence; Z88.5 Allergy status to narcotic agent; Z79.1 Long term (current) use of non-steroidal anti-inflammatories (NSAID); Z79.51 Long term (current) use of inhaled steroids; Z79.899 Other long term (current) drug therapy
CPT/HCPCS: 71045; 73030; 80048; 82550; 82553; 84484; 85025; 85049; 85055; 93005; 93041; 94760; 96374; 99285; J3010